=== PATIENT | male | born 1945 | race Caucasian/White ===

== ENCOUNTER 2017-08-23 15:25 | Emergency (ER) | payer OTHER ==
[2017-08-23] MEDS ORDERED: RX INFO: IV CONTRAST WAS GIVEN 1 EACH MISC MISCELLANE PRN (15:34)
[2017-08-23] MEDS ORDERED: LORazepam 2 MG/ML INJ IV PRN ×2 (15:37)
[2017-08-23] MEDS ORDERED: MIDAZOLAM 2 MG/2 ML VIAL IV STA (15:38)
[2017-08-23] MEDS ORDERED: SUCCINYLCHOLINE CHLORIDE VIAL 200 MG/10 ML VIAL IV STA (15:38)
[2017-08-23 15:43] LABS: Basophils # (A) 0.1 k/uL (0-0.2); Basophils % (A) 0 %; CH 33.1; CHCM 35.3; Eosinophils % (A) 0 %; HCT 45.3 % (39.0-53.0); HDW 2.75; HGB 15.7 gm/dL (13.0-17.5); Luc # (Auto) 0.22; Luc % (Auto) 2; Lymphocytes # (A) 2.1 k/uL (1.0-4.8); Lymphocytes % (A) 14 %; MCH 32.6 pg (25.0-35.0); MCHC 34.6 g/dL (31.0-37.0); MCV 94.2 fL (80.0-100.0); Mean Platelet Volume 7.5; Monocytes # (A) 0.5 k/uL (0-1.0); Monocytes % (A) 3 %; Neutrophils # (A) 12.1 k/uL (1.3-7.7); Neutrophils % (A) 81 %; RBC 4.81 m/uL (4.30-5.90); RDW 12.4 % (11.5-15.5); WBC (Perox) 14.38
[2017-08-23] MEDS ORDERED: PROPOFOL 1,000 MG/100 ML VIAL IV SCH (15:45)
[2017-08-23 15:47] LABS: Glucose,Whole Blood 277 mg/dL (75-99)
[2017-08-23 15:52] LABS: INR 1.2 (<1.2); Prothrombin Time 11.5 sec (9.0-12.0)
[2017-08-23 15:54] LABS: ALT 156 U/L (21-72); AST 118 U/L (17-59); Alcohol <10 mg/dL; Alkaline Phosphatase 64 U/L (38-126); Amylase 54 U/L (30-110); Anion Gap 15 mmol/L; Blood Urea Nitrogen 19 mg/dL (9-20); Carbon Dioxide 17 mmol/L (22-30); Chloride 102 mmol/L (98-107); Glucose 274 mg/dL (74-99); Non-African American GFR(MDRD) >60 (>60 ml/min/1.73 sqM); Potassium 3.9 mmol/L (3.5-5.1); Sodium 134 mmol/L (137-145); Total Bilirubin 0.7 mg/dL (0.2-1.3); Total Protein 6.7 g/dL (6.3-8.2)
[2017-08-23] MEDS ORDERED: SODIUM CHLORIDE 0.9% 1,000 ML IV STA (15:54)
--- NOTE | 2017-08-23 16:08 | XR ---
EXAMINATION TYPE: XR chest 1V portable DATE OF EXAM: 08/23/2017 Comparison: None Clinical History: Mark Peña male Findings: ET tube is satisfactory. NG tube sidehole is just above the level of GE junction. This could be advan laurent by 7 cm further into the stomach. Heart is borderline enlarged. Diffuse interstitial and some patchy airspace opacity, right greater th an left. No significant pleural effusion seen. No appreciable pneumothorax. Impression: 1. Borderline heart size with diffuse interstitial and some patchy airspace opacity. In the setting o f trauma, findings could represent developing neurogenic pulmonary edema or diffuse pulmonary contusi on. Correlate to exclude fluid overload. 2. The NG tube could be further advanced into the stomach by 7 cm.
--- NOTE | 2017-08-23 16:09 | XR ---
EXAMINATION TYPE: XR pelvis AP view DATE OF EXAM: 08/23/2017 COMPARISON: NONE HISTORY: Mark Peña male TECHNIQUE: Single AP view FINDINGS: Underpenetration limits evaluation. The left hip is in external rotation. The arcuate lines of the sacrum appear smooth and continuous and the SI joints appear symmetric and intact as does the symphysis. No acute fracture or dislocation seen. The lateral margin of the left greater trochanter is excluded from view. Mild degenerative spurring at the hips. IMPRESSION: Limited portable exam with the lateral aspect of the left greater trochanter excluded from view and t he left hip in external rotation limiting assessment of the femoral neck. No definite acute osseous a bnormality seen.
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
[2017-08-23 16:18] LABS: Creatine Kinase MB 2.7 ng/mL (0.0-2.4); Troponin I 0.258 ng/mL (0.000-0.034)
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
[2017-08-23 17:02] LABS: Appearance,Urine Clear (Clear); Bilirubin,Urine Negative (Negative); Glucose,Urine (UA) 4+ (Negative); Ketones,Urine 1+ (Negative); Leukocyte Esterase,Urine Negative (Negative); Mucus,Urine Rare /hpf; Nitrite,Urine Negative (Negative); PH, Urine 5.5 (5.0-8.0); Particle Count 4602; Protein,Urine 2+ (Negative); RBC,Urine 3 /hpf (0-5); Specific Gravity,Urine 1.016 (1.001-1.035); UA Billing (MACRO vs. MICRO) MICRO; Urobilinogen,Urine <2.0 mg/dL (<2.0); WBC,Urine 5 /hpf (0-5)
[2017-08-23 17:17] LABS: ABG HCO3 20 mmol/L (21-25); ABG PCO2 38 mmHg (35-45); ABG PH 7.34 (7.35-7.45); ABG PO2 203 mmHg (83-108); ABG TCO2 21 mmol/L (19-24)
[2017-08-23 17:18] LABS: ABG Base Excess -4.5 mmol/L
[2017-08-23 19:25] VITALS: BP 99/56; PULSE 92; RESP 18; TEMP 97
== END 2017-08-23 18:27 | disposition other institution (70) ==
LOC: EC 15:25 → MERGE 15:25 → EC 18:27
DX: R41.82 Altered mental status, unspecified (principal); R79.89 Other specified abnormal findings of blood chemistry; V47.5XXA Car driver injured in collision with fixed or stationary object in traffic accident, initial encounter; Y92.410 Unspecified street and highway as the place of occurrence of the external cause
CPT/HCPCS: 99285; 31500; 36415; 36600; 94002; 86900; 86901; 80053; 82150; 82550; 82553; 82805; 83605; 83690; 84484; 85025; 85610; 85730; 86850; 81001; 80306; 80320; 71010; 72170; 72125; 70450; 71260; 74177; Q9967; J2704; 93005

== ENCOUNTER → 2018-05-01 | Outpatient (CLI) | payer MEDICARE ==
--- NOTE | 2018-05-01 20:37 | MR ---
EXAMINATION TYPE: MR cervical spine wo/w con DATE OF EXAM: 05/01/2018 COMPARISON: CT scan 08/23/2017 HISTORY: Neck pain, headaches, weakness/tingling upper extremities TECHNIQUE: Multiplanar, multisequence images of the cervical spine were acquired utilizing 12 mL intravenous Monico avist gadolinium contrast. Diffusion weighted imaging was performed. Vertebral body hemangioma of C7 noted. C2-C3: Disc desiccation and small central disc bulging but no canal stenosis or spinal cord contact. Mild bilateral uncovertebral joint hypertrophy but no foraminal encroachment. C3-C4: Focal moderate to large sized central disc herniation with anterior compression of the spinal cord. Facet arthropathy and uncovertebral joint hypertrophy contribute to mild to moderate bilateral foraminal encroachment. C4-C5: Large central and right paracentral disc herniation with severe anterior compression of the sp inal cord. Moderate to severe left foraminal encroachment and severe right-sided foraminal encroachme nt. Uncovertebral joint hypertrophy and facet arthropathy contribute to the foraminal encroachment. C5-C6: Broad-based central disc herniation abutting the anterior margin the spinal cord. Uncovertebra l joint hypertrophy and facet arthropathy are noted with moderate to severe bilateral foraminal encro achment. C6-C7: Right paracentral disc herniation which results in mild anterior compression upon the spinal c ord. Mild right-sided foraminal encroachment. C7-T1: No evidence for degenerative disc disease. No disc bulge/herniation or protrusion. No Canal stenosis. Foramina are patent bilaterally. Cervical segments are intact. There is normal alignment. Cervical spinal cord demonstrates a small focal area of abnormal signal on the right at the C4-C5 level. Craniovertebral junction relationship s are within normal limits. IMPRESSION: 1. Multilevel degenerative disc disease with multilevel disc herniations resulting in anterior spinal cord compression with the most marked findings seen at C4-C5. Focal area of abnormal signal involvin g the spinal cord on the right related to a tiny area of myelitis or myelomalacia. 2. Multilevel foraminal encroachment secondary to degenerative and hypertrophic changes.
== END | disposition home or self-care (01) ==
LOC: RADMRIMAIN 18:31
PROVIDERS: ATTEND Family Medicine
DX: M50.221 Other cervical disc displacement at C4-C5 level (principal); M50.321 Other cervical disc degeneration at C4-C5 level; M47.22 Other spondylosis with radiculopathy, cervical region
CPT/HCPCS: 82565; 72156; 36415; A9581

== ENCOUNTER → 2018-12-12 | Outpatient (CLI) | payer MEDICARE ==
--- NOTE | 2018-12-12 08:23 | US ---
EXAMINATION TYPE: US duplex aorta DATE OF EXAM: 12/12/2018 COMPARISON: CT from August 23, 2017 CLINICAL HISTORY: Z13.6 Screening For AAA. AAA screening, pt has no complaints at this time EXAM MEASUREMENTS: Abdominal Aorta: Proximal: 2.3 x 2.5 cm Mid: 1.9 x 1.8 cm Distal: 1.7 x 1.7 cm Bifurcation: KAMRON: 1.2 x 1.0 HIPOLITO: 1.1 x 0.9 cm Aorta is visualized to the bifurcation without aneurysmal change. IMPRESSION: No ultrasound evidence for AAA.
== END | disposition home or self-care (01) ==
LOC: RADUSWWP 07:53
PROVIDERS: ATTEND Family Medicine
DX: Z13.6 Encounter for screening for cardiovascular disorders (principal)
CPT/HCPCS: 93979

== ENCOUNTER 2019-02-25 07:20 | Day surgery (SDC) | payer MEDICARE ==
[2019-02-20 12:26] VITALS: BMI 32.8
[~2019-02-25 07:20] MED LIST: LACTATED RINGERS 1,000 ML IV SCH
[2019-02-25] MEDS ORDERED: LIDOCAINE 1% 20 ML VIAL (10MG/ML) FOR IV START INTRADERMA ONE (08:39)
[2019-02-25 08:45] VITALS: TEMP 97.8
[2019-02-25 08:52] LABS: Glucose,Whole Blood 124 mg/dL (75-99)
[2019-02-25] MEDS ORDERED: PROPOFOL 10 MG/ML 20 ML VIAL IV ONE (09:03)
--- NOTE | 2019-02-25 09:31 | P.PCN ---
Date of Procedure: 02/25/19 Procedure(s) Performed: Procedure: Colonoscopy and polypectomy. Preoperative diagnosis: Screening for neoplasia. Postoperative diagnosis: 1. Small hepatic flexure polyp snared but no large polyps or cancer. Preparation: HalfLytely prep. Sedation: Was provided by anesthesia. Brief clinical history: The patient is a 73-year-old male who is scheduled for this evaluation for screening for neoplasia because of age as risk factor. There is no family history of colon cancer. The patient had no prior col onoscopy. He has no abdominal complaints, bleeding or anemia. Procedure: With the patient on his left lateral decubitus position and after informed consent and adequate sedation, the perianal area was inspected and it did not show any fissures or fistulas. There were no masses felt on digital rectal examination. The Olympus CFH 190L video colonoscope was then inserted in the rectum in the usual fashion and advanced to the cecum. The mucosa appeared healthy. A small polyp was noted around the hepatic flexure which was snared and removed by suction. There were no large polyps or tumors. No obvious diverticular disease. I retroflexed the endoscope in the rectum before the endoscope was withdrawn. The patient tolerated the procedure well. Plan: The patient was reassured. He will follow up with you as planned and I recommended repeat exam in 5 years.
[2019-02-25 09:33] VITALS: RESP 17
[2019-02-25 09:37] LABS: Glucose,Whole Blood 126 mg/dL (75-99)
[2019-02-25 09:44] VITALS: BP 149/57; PULSE 69
== END 2019-02-25 10:08 | disposition home or self-care (01) ==
LOC: ORWHC2ENDO 07:20
DX: Z12.11 Encounter for screening for malignant neoplasm of colon (principal); K63.5 Polyp of colon; E11.9 Type 2 diabetes mellitus without complications; K21.9 Gastro-esophageal reflux disease without esophagitis; I25.10 Atherosclerotic heart disease of native coronary artery without angina pectoris; E78.5 Hyperlipidemia, unspecified; I10 Essential (primary) hypertension; G51.0 Bell's palsy; I25.2 Old myocardial infarction; Z95.5 Presence of coronary angioplasty implant and graft; Z79.84 Long term (current) use of oral hypoglycemic drugs; Z79.02 Long term (current) use of antithrombotics/antiplatelets; Z79.82 Long term (current) use of aspirin; Z79.899 Other long term (current) drug therapy
CPT/HCPCS: 88305; 45385; J2704

== ENCOUNTER → 2020-06-16 | Outpatient (CLI) | payer MEDICARE, OTHER ==
--- NOTE | 2020-06-16 15:48 | US ---
EXAMINATION TYPE: US carotid duplex BILAT DATE OF EXAM: 06/16/2020 COMPARISON: NONE CLINICAL HISTORY: G45.9 TIA. EXAM MEASUREMENTS: RIGHT: Peak Systolic Velocity (PSV) cm/sec ----- Right CCA: 91.7 ----- Right ICA: 98.0 ----- Right ECA: 117.4 ICA/CCA ratio: 1.1 RIGHT: End Diastole cm/sec ----- Right CCA: 21.0 ----- Right ICA: 17.2 ----- Right ECA: 11.1 LEFT: Peak Systolic Velocity (PSV) cm/sec ----- Left CCA: 104.3 ----- Left ICA: 89.2 ----- Left ECA: 155.0 ICA/CCA ratio: 0.9 LEFT: End Diastole cm/sec ----- Left CCA: 19.7 ----- Left ICA: 26.0 ----- Left ECA: 13.0 VERTEBRALS (direction of flow): Right Vertebral: Antegrade Left Vertebral: Antegrade Rhythm: Normal No significant stenosis seen. Mildly elevated left ECA. Minimal plaque noted. IMPRESSION: 1. No significant flow-limiting stenosis within the internal carotid arteries. 2. There is some elevation of the left external carotid artery velocities suggesting some stenosis of the left ECA. Criteria for Assigning % of Stenosis / Diameter reduction (Estimation based on the indirect measurements of the internal carotid artery velocities (ICA PSV). 1. Normal (no stenosis)=ICA PSV < 125 cm/s: ratio < 2.0: ICA EDV<40 cm/s. 2. Less than 50% stenosis=ICA PSV < 125 cm/s: ratio < 2.0: ICA EDV<40 cm/s. 3. 50 to 69% stenosis=ICA PSV of 125 to 230 cm/s: ration 2.0 ? 4.0: ICA EDV 40-100 cm/s. 4. Greater than 70% stenosis to near occlusion= ICA PSV > 230 cm/s: ratio > 4.0: ICA EDV > 100 cm/s. 5. Near occlusion= ICA PSV velocities may be low or undetectable: variable ratio and ICA EDV. 6. Total occlusion=unable to detect flow.
== END | disposition home or self-care (01) ==
LOC: RADUSWWP 15:14
PROVIDERS: ATTEND Family Medicine
DX: G45.9 Transient cerebral ischemic attack, unspecified (principal); R94.8 Abnormal results of function studies of other organs and systems
CPT/HCPCS: 93880

== ENCOUNTER → 2022-04-18 | Outpatient (CLI) | payer MEDICARE, OTHER ==
--- NOTE | 2022-04-19 07:39 | CA ---
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 18 - 58 / 22 - 52 cm??? M-MODE Aortic Root Diameter MM 3.1 cm MV E Point Septal Separation 0.4 cm AV Cusp Separation MM 2.3 cm DOPPLER AV Peak Velocity 142.2 cm/s AV Peak Gradient 8.1 mmHg AI Peak Velocity 133.0 cm/s AI Peak Gradient 7.1 mmHg AI Pressure Half Time 301.2 ms MV Area PHT 2.5 cm??? Mitral E Point Velocity 78.2 cm/s Mitral A Point Velocity 108.5 cm/s Mitral E to A Ratio 0.7 MV Deceleration Time 303.0 ms MV E' Velocity 7.4 cm/s Mitral E to MV E' Ratio 10.5 TR Peak Velocity 244.0 cm/s TR Peak Gradient 23.8 mmHg Right Ventricular Systolic Press 28.8 mmHg FINDINGS Left Ventricle Left ventricular ejection fraction is estimated at 55-60 %. Left ventricular cavity size normal. Borderline left ventricular hypertrophy. Right Ventricle Mild right ventricular dilatation. Right ventricular systolic pressure within normal limits. Right Atrium Normal right atrial size. Left Atrium Normal left atrial size. No evidence for an atrial septal defect. Mitral Valve Mitral valve thickened. Trace mitral regurgitation. Aortic Valve Focal thickening of the aortic valve cusps. Trace aortic regurgitation. Tricuspid Valve Trace to mild tricuspid regurgitation. Pulmonic Valve Mild pulmonic regurgitation. Pericardium Normal pericardium. No pericardial effusion. Aorta Normal size aortic root and proximal ascending aorta. CONCLUSIONS Normal left ventricular ejection fraction 55-60% Borderline LVH Trace mitral regurgitation Trace to mild tricuspid regurgitation No pericardial effusion Previewed by: Dr. Jonathon Rockwell DO (Electronically Signed) Final Date: 19 April 2022 07:38
== END | disposition home or self-care (01) ==
LOC: RADECHMAIN 13:39
PROVIDERS: ATTEND Family Medicine
DX: I08.1 Rheumatic disorders of both mitral and tricuspid valves (principal)
CPT/HCPCS: 93306